=== PATIENT | female | born 1985 | race Caucasian/White ===

== ENCOUNTER → 2023-01-19 | Outpatient (CLI) | payer OTHER | END | disposition home or self-care (01) | LOC: RADMN 08:09 | PROVIDERS: ATTEND Student in an Organized Health Care Education/Training Program | DX: M71.331 Other bursal cyst, right wrist (principal); M25.431 Effusion, right wrist; R60.0 Localized edema; M25.831 Other specified joint disorders, right wrist; M25.531 Pain in right wrist | CPT/HCPCS: 73221 ==